=== PATIENT | female | born 1955 | race Two or more races ===

== ENCOUNTER → 2016-09-23 | Outpatient (CLI) | payer OTHER ==
[~2016-09-23] MED LIST: ALBU18HF INH; ASCO1TAB4 PO; ASPI-621 PO; DULA1.5P SC; LISI-167 PO; LOVA40TA2 PO; METF850T2 PO; METO50TA82 PO; MULT-672 PO; OMEP-110 PO; [UNRECOGNIZED DRUG - OTHER] PO
[2016-09-23 08:56] LABS: ASPARTATE AMINO TRANSFERASE 14 U/L (15-37); BLOOD UREA NITROGEN 22 mg/dL (7-18)
== END | disposition home or self-care (01) ==
LOC: STAR 07:51
PROVIDERS: ATTEND Obstetrics & Gynecology Female Pelvic Medicine and Reconstructive Surgery
DX: Z01.818 Encounter for other preprocedural examination (principal)
CPT/HCPCS: 36415; 71020; 80053; 85025; 93005

== ENCOUNTER 2016-10-20 07:36 | Day surgery (SDC) | payer OTHER ==
[~2016-10-20] VITALS: Ht 154.9 cm; Wt 71.5 kg
[~2016-10-20 07:36] MED LIST changes: +BUPIVACAINE/PF 0.25% ONE; +EPINEPHRINE 1 MG/ML, 1ML ONE; +FLUORESCEIN SODIUM 500 MG/5 ML ONE; +THROMBIN 5,000 UNIT VIAL TP ONE
[2016-10-20] MEDS ORDERED: LACTATED RINGERS 1,000 ML IV SCH ×2 (08:39→12:28)
[2016-10-20] MEDS ORDERED: FENTANYL PF 250 MCG/5ML ONE (08:42)
[2016-10-20] MEDS ORDERED: MIDAZOLAM 1 MG/ML, 2ML ONE (08:42)
[2016-10-20 09:12] VITALS: BP 120/73
[2016-10-20] MEDS ORDERED: ONDANSETRON 2MG/ML, 2ML ONE (09:24)
[2016-10-20] MEDS ORDERED: NEOSTIGMINE 1 MG/ML, 10ML ONE (09:24)
[2016-10-20] MEDS ORDERED: GLYCOPYRROLATE 0.2MG/1ML ONE (09:24)
[2016-10-20] MEDS ORDERED: CEFAZOLIN 1,000 MG ONE (09:24)
[2016-10-20] MEDS ORDERED: DEXAMETHASONE 4 MG/ML, 1ML ONE (09:24)
[2016-10-20] MEDS ORDERED: PROPOFOL 10 MG/ML, 20ML ONE (09:24)
[2016-10-20] MEDS ORDERED: ROCURONIUM 10 MG/ML ONE (09:24)
[2016-10-20] MEDS ORDERED: KETOROLAC 30 MG/1 ML ONE (09:24)
[2016-10-20] MEDS ORDERED: PHENYLEPHRINE 10 MG/ML ONE (09:24)
[2016-10-20] MEDS ORDERED: BUPIVACAINE/PF 0.25% ONE (09:54)
[2016-10-20] MEDS ORDERED: ALBUTEROL/IPRATROPIUM 2.5MG/0.5MG, 3 ML NPPB PRN (10:30)
[2016-10-20] MEDS ORDERED: MEPERIDINE/PF 25MG/0.5ML IVPush PRN (10:30)
[2016-10-20] MEDS ORDERED: hydrALAzine 20 MG/ML, 1ML IV PRN (10:30)
[2016-10-20] MEDS ORDERED: LABETALOL 5MG/ML, 20ML IV PRN (10:30)
[2016-10-20] MEDS ORDERED: PROMETHAZINE 25 MG/ML, 1ML IV PRN (10:30)
[2016-10-20] MEDS ORDERED: HYDROmorphone 1 MG/ML, 1ML IV PRN (10:30)
[2016-10-20] MEDS ORDERED: ONDANSETRON 2MG/ML, 2ML IVPush PRN ×2 (10:30→12:30)
[2016-10-20] MEDS ORDERED: OXYcodone 5 MG/5 ML ORAL.SOL UDC PO PRN (10:30)
[2016-10-20] MEDS ORDERED: ACETAMINOPHEN 325 MG TABLET PO PRN (10:30)
[2016-10-20] MEDS ORDERED: FENTANYL PF 100 MCG/2ML IV PRN (10:30)
[2016-10-20] MEDS ORDERED: MIDAZOLAM 1 MG/ML, 2ML IV PRN (10:30)
[2016-10-20] MEDS ORDERED: NEOMY/POLYMYXIN B GU IRR. 1 ML IRRIG ONE (11:32)
[2016-10-20] MEDS ORDERED: HYDROmorphone 1 MG/ML, 1ML ONE (11:54)
[2016-10-20] MEDS ORDERED: THROMBIN 5,000 UNIT VIAL TP ONE (12:00)
[2016-10-20] MEDS ORDERED: IBUPROFEN 600 MG TABLET PO PRN (12:30)
[2016-10-20] MEDS ORDERED: HYDROcodone/APAP 5/325 TABLET PO PRN (12:30)
[2016-10-20] MEDS ORDERED: PROMETHAZINE 25 MG SUPP PR ONE (12:30)
[2016-10-20] MEDS ORDERED: OXYcodone 5 MG/5 ML ORAL.SOL UDC ONE (13:13)
[2016-10-20] MEDS ORDERED: ACETAMINOPHEN 650 MG/20.3 ML UDC ONE (13:13)
[2016-10-20] MEDS ORDERED: MEPERIDINE/PF 25MG/0.5ML ONE (13:13)
== END 2016-10-20 18:35 ==
LOC: OUT 07:36
PROVIDERS: ATTEND Obstetrics & Gynecology Female Pelvic Medicine and Reconstructive Surgery
DX: N81.4 Uterovaginal prolapse, unspecified (principal); N39.3 Stress incontinence (female) (male); N32.81 Overactive bladder; E78.5 Hyperlipidemia, unspecified; I21.3 ST elevation (STEMI) myocardial infarction of unspecified site; I10 Essential (primary) hypertension; K21.9 Gastro-esophageal reflux disease without esophagitis; E11.9 Type 2 diabetes mellitus without complications; J45.909 Unspecified asthma, uncomplicated; Z86.74 Personal history of sudden cardiac arrest; Z79.84 Long term (current) use of oral hypoglycemic drugs; Z79.02 Long term (current) use of antithrombotics/antiplatelets; Z88.8 Allergy status to other drugs, medicaments and biological substances; Z98.51 Tubal ligation status
CPT/HCPCS: 57288; 57425; 58542; 82962; 88307; C1771; C1781; J0171; J0690; J1100; J1170; J1885; J2175; J2250; J2370; J2405; J2704; J2710; J3010; J3490; J7120

== ENCOUNTER 2017-03-19 13:40 | Emergency (ER) | payer OTHER ==
[~2017-03-19] VITALS: Ht 152.4 cm; Wt 73.7 kg
[~2017-03-19 13:40] MED LIST changes: -BUPIVACAINE/PF 0.25% ONE; -EPINEPHRINE 1 MG/ML, 1ML ONE; -FLUORESCEIN SODIUM 500 MG/5 ML ONE; -THROMBIN 5,000 UNIT VIAL TP ONE
[2017-03-19 14:42] LABS: HEMATOCRIT 38.6 % (34.6-47.8); HEMOGLOBIN 12.7 g/dL (11.7-16.4); WHITE BLOOD COUNT 7.7 x10^3/uL (3.4-10)
[2017-03-19 14:54] LABS: ASPARTATE AMINO TRANSFERASE 20 U/L (15-37); BLOOD UREA NITROGEN 21 mg/dL (7-18)
[2017-03-19 14:54] LABS: PATH.CAST-FLAG NOT PRESENT; SPERM-FLAG NOT PRESENT; SRC-FLAG NOT PRESENT; XTAL-FLAG NOT PRESENT; YLC-FLAG NOT PRESENT
[2017-03-19 15:50] VITALS: BP 129/63
== END 2017-03-19 16:14 | disposition home or self-care (01) ==
LOC: ED 16:08
DX: K58.0 Irritable bowel syndrome with diarrhea (principal); N30.00 Acute cystitis without hematuria; E11.9 Type 2 diabetes mellitus without complications; E78.5 Hyperlipidemia, unspecified; I10 Essential (primary) hypertension
CPT/HCPCS: 36415; 74020; 80053; 81001; 83690; 85025; 87077; 87086; 87186; 99285